=== PATIENT | female | born 1950 | race Caucasian/White ===

== ENCOUNTER 2020-02-02 08:48 | Outpatient (CLI) | payer MEDICARE, OTHER ==
--- NOTE | 2020-02-05 08:30 | DEXA Report ---
Reason: ASYMPTOMATIC MENOPAUSAL STATE Procedure Date: 02/02/2020 Accession Number: [id number] / [id number] Procedure: DEX - Dexa Spine and/or Hip CPT Code: Final Report FULL RESULT: EXAM: Dexa Spine and/or Hip, Dexa Forearm DATE: 02/02/2020 9:52 AM CLINICAL HISTORY: ASYMPTOMATIC MENOPAUSAL STATE TECHNIQUE: Dual energy x-ray absorptiometry (DXA) was performed on a [employer] System. Regions measured are the AP Spine, femoral neck, and if needed forearm. Forearm images are obtained due to exclusion of multiple vertebral bodies in the lumbar spine with apparent low reliability data generated of the lumbar spine DEXA due to anatomic considerations/hyperlordosis and scoliosis with degenerative changes. COMPARISON: None. In accordance with the International Society for Clinical Densitometry (ISCD) guidelines, data from previous exams may be reanalyzed using current recommendations and techniques. This is done to allow a more accurate basis for comparison with the current study. FINDINGS: The data for the lumbar spine is as follows: BMD (g/cm/cm) T-SCORE Z-SCORE REGION L1 1.217 0.7 2.1 L2 1.356 1.3 2.7 L3 1.384 1.5 2.9 L4 1.245 0.4 1.8 TOTAL (L1 and L2) 1.276 0.9 2.3 NOTE: L3 and L4 excluded due to outlier T score. The data for the hip is as follows: BMD (g/cm/cm) T-SCORE Z-SCORE REGION Neck 0.820 -1.6 -0.1 TOTAL 0.794 -1.7 -0.5 NOTE: The femoral neck or total proximal femur, whichever is lowest, is used for classification. The data for the left forearm is as follows: BMD (g/cm/cm) T-SCORE Z-SCORE REGION 1/3 0.697 -2 -0.3 NOTE: The 33% radius of the nondominant forearm is used for classification. IMPRESSION: THE WHO CLASSIFICATION BASED ON THE INTERNATIONAL REFERENCE STANDARD IS OSTEOPENIA. THE FRACTURE RISK IS INCREASED. RECOMMENDATION: Patients with diagnosis of osteoporosis or osteopenia should have regular bone mineral density assessment. For those eligible for Medicare, routine testing is allowed once every 2 years. Testing frequency can be increased for patients who have rapidly progressing disease or for those who are receiving medical therapy to restore bone mass. COMMENT: World Health Organization (WHO) definitions for osteoporosis and osteopenia: NORMAL BMD: T-score at -1.0 or higher, fracture risk is low OSTEOPENIA BMD: T-score between -1.0 and -2.5, fracture risk is increased. OSTEOPOROSIS BMD: T-score at -2.5 or lower, fracture risk is high. National Osteoporosis Foundation recommends: 1. Obtain adequate dietary calcium (at least 1200 mg per day) and vitamin D (400-800 international units per day). 2. Participate, as appropriate, in regular weightbearing and muscle-strengthening exercise. 3. Avoid tobacco use and reduce alcohol and caffeine intake. 4. For more detailed information see the website at www.NOF.org.
--- NOTE | 2020-02-05 08:30 | DEXA Report ---
Reason: Asymptomatic Menopausal State Procedure Date: 02/02/2020 Accession Number: [id number] / [id number] Procedure: DEX - Dexa Forearm CPT Code: Final Report FULL RESULT: EXAM: Dexa Spine and/or Hip, Dexa Forearm DATE: 02/02/2020 9:52 AM CLINICAL HISTORY: ASYMPTOMATIC MENOPAUSAL STATE TECHNIQUE: Dual energy x-ray absorptiometry (DXA) was performed on a [employer] System. Regions measured are the AP Spine, femoral neck, and if needed forearm. Forearm images are obtained due to exclusion of multiple vertebral bodies in the lumbar spine with apparent low reliability data generated of the lumbar spine DEXA due to anatomic considerations/hyperlordosis and scoliosis with degenerative changes. COMPARISON: None. In accordance with the International Society for Clinical Densitometry (ISCD) guidelines, data from previous exams may be reanalyzed using current recommendations and techniques. This is done to allow a more accurate basis for comparison with the current study. FINDINGS: The data for the lumbar spine is as follows: BMD (g/cm/cm) T-SCORE Z-SCORE REGION L1 1.217 0.7 2.1 L2 1.356 1.3 2.7 L3 1.384 1.5 2.9 L4 1.245 0.4 1.8 TOTAL (L1 and L2) 1.276 0.9 2.3 NOTE: L3 and L4 excluded due to outlier T score. The data for the hip is as follows: BMD (g/cm/cm) T-SCORE Z-SCORE REGION Neck 0.820 -1.6 -0.1 TOTAL 0.794 -1.7 -0.5 NOTE: The femoral neck or total proximal femur, whichever is lowest, is used for classification. The data for the left forearm is as follows: BMD (g/cm/cm) T-SCORE Z-SCORE REGION 1/3 0.697 -2 -0.3 NOTE: The 33% radius of the nondominant forearm is used for classification. IMPRESSION: THE WHO CLASSIFICATION BASED ON THE INTERNATIONAL REFERENCE STANDARD IS OSTEOPENIA. THE FRACTURE RISK IS INCREASED. RECOMMENDATION: Patients with diagnosis of osteoporosis or osteopenia should have regular bone mineral density assessment. For those eligible for Medicare, routine testing is allowed once every 2 years. Testing frequency can be increased for patients who have rapidly progressing disease or for those who are receiving medical therapy to restore bone mass. COMMENT: World Health Organization (WHO) definitions for osteoporosis and osteopenia: NORMAL BMD: T-score at -1.0 or higher, fracture risk is low OSTEOPENIA BMD: T-score between -1.0 and -2.5, fracture risk is increased. OSTEOPOROSIS BMD: T-score at -2.5 or lower, fracture risk is high. National Osteoporosis Foundation recommends: 1. Obtain adequate dietary calcium (at least 1200 mg per day) and vitamin D (400-800 international units per day). 2. Participate, as appropriate, in regular weightbearing and muscle-strengthening exercise. 3. Avoid tobacco use and reduce alcohol and caffeine intake. 4. For more detailed information see the website at www.NOF.org.
== END 2020-02-02 08:49 | disposition home or self-care (01) ==
LOC: DI 08:48
PROVIDERS: ATTEND Internal Medicine
DX: M85.88 Other specified disorders of bone density and structure, other site (principal)
CPT/HCPCS: 77080; 77081

== ENCOUNTER 2020-06-14 10:35 | Outpatient (CLI) | payer MEDICARE, OTHER ==
--- NOTE | 2020-06-17 09:18 | Mammography Report ---
BILATERAL DIGITAL SCREENING MAMMOGRAM 3D/2D: 06/14/2020 CLINICAL: Routine screening. Comparison is made to exams dated: 12/15/2017 mammogram, 12/10/2015 mammogram, and 06/08/2013 mammogram - [facility]. There are scattered fibroglandular elements in both breasts. No significant masses, calcifications, or other findings are seen in either breast. There has been no significant interval change. IMPRESSION: NEGATIVE There is no mammographic evidence of malignancy. A 1 year screening mammogram is recommended. This exam was interpreted at Station ID: [id number]. NOTE: For mammograms, a report in lay terms will be sent to the patient. Approximately 15% of breast malignancies will not be visualized mammographically. In the management of a palpable breast mass, a negative mammogram must not discourage biopsy of a clinically suspicious lesion. Electronically Signed By: Panda Sykes M.D. ddp/penrad:06/14/2020 15:52:09 ACR BI-RADS Category 1: Negative 3341F PARENCHYMAL PATTERN: (A) - The breast(s) demonstrate(s) scattered fibroglandular densities. BI-RADS CATEGORY: (1) - 1 RECOMMENDATION: (ANNUAL) - Recommend routine annual screening mammography. [id number] 1 year screening LATERALITY: (B)
== END 2020-06-14 10:36 | disposition home or self-care (01) ==
LOC: DI 10:35
DX: Z12.31 Encounter for screening mammogram for malignant neoplasm of breast (principal)
CPT/HCPCS: 77063; 77067

== ENCOUNTER 2021-08-13 14:43 | Emergency (ER) | payer MEDICARE, OTHER ==
[2021-08-13 16:29] LABS: BASOPHILS # (AUTO) 0.1 10^3/uL (0.0-0.1); EOSINOPHILS # (AUTO) 0.2 10^3/uL (0.0-0.7); HCT - HEMATOCRIT 47.8 % (37.0-47.0); HGB - HEMOGLOBIN 15.7 g/dL (12.0-16.0); LYMPHOCYTES # (AUTO) 1.6 10^3/uL (1.5-3.5); LYMPHOCYTES % (AUTO) 26.3 %; MEAN CORPUSCULAR HEMOGLOBIN 31.8 pg (27.0-31.0); MEAN CORPUSCULAR HGB CONC 32.8 g/dL (32.0-36.0); MEAN CORPUSCULAR VOLUME 96.8 fL (81.0-99.0); MEAN PLATELET VOLUME 11.2 fL (7.9-10.8); MONOCYTES # (AUTO) 0.6 10^3/uL (0.0-1.0); MONOCYTES % (AUTO) 9.3 %; NEUTROPHILS # (AUTO) 3.6 10^3/uL (1.5-6.6); NEUTROPHILS % (AUTO) 60.2 %; PLT - PLATELET COUNT 180 10^3/uL (130-450); RED BLOOD COUNT 4.94 10^6/uL (4.20-5.40); RED CELL DISTRIBUTION WIDTH 12.7 % (12.0-15.0)
[2021-08-13 16:43] LABS: ALBUMIN 4.4 g/dL (3.2-5.5); ALBUMIN/GLOBULIN RATIO 1.4 (1.0-2.2); BILIRUBIN,TOTAL 0.9 mg/dL (0.2-1.0); CALCIUM 9.7 mg/dL (8.5-10.3); CREATININE 0.9 mg/dL (0.4-1.0); POTASSIUM 3.7 mmol/L (3.5-5.0); PT - PROTHROMBIN TIME 10.9 secs (9.9-12.6); TOTAL PROTEIN 7.6 g/dL (6.7-8.2)
[2021-08-13 16:50] LABS: PARTIAL THROMBOPLASTIN TIME 31.9 secs (24.9-33.3)
[2021-08-13 18:22] VITALS: BP 151/95
--- NOTE | 2021-08-13 18:58 | ED Physician Documentation ---
History of Present Illness - Stated complaint Stated Complaint: BLOOD IN STOOL - Chief complaint Chief Complaint: General - History obtained from History obtained from: Patient - History of Present Illness Timing: Today Pain level max: 0 Pain level now: 0 - Additonal information Additional information: Patient is a 70-year-old female who presents to the emergency department with blood in her stool x1 today. She states bright red blood. History of hemorrhoids. Has had colonoscopies in the past with no issues found. No polyps or tumors. She is not having abdominal pain or fever. Patient denies any trauma. 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/Adenoidectomy - Present Medications Home Medications: Ambulatory Orders Medication Instructions Recorded Confirmed amLODIPine [Norvasc] 2.5 mg PO DAILY 08/01/15 08/01/15 atenoloL [Atenolol] 100 mg PO DAILY 08/01/15 08/01/15 - Allergies Allergies/Adverse Reactions: Allergies Allergy/AdvReac Type Severity Reaction Status Date / Time ampicillin Allergy Unknown Verified 08/01/15 03:56 esomeprazole magnesium * Allergy Unknown Verified 08/01/15 03:57 [From Nexium] hydrochlorothiazide Allergy Unknown Verified 08/01/15 03:57 lisinopril Allergy Unknown Verified 08/01/15 03:57 ranitidine Allergy Unknown Verified 08/01/15 03:57 Sulfa (Sulfonamide Allergy Unknown Verified 08/01/15 03:56 Antibiotics) - Social History Does the pt smoke?: No Smoking Status: Never smoker Does the pt drink ETOH?: Yes Does the pt have substance abuse?: No - Immunizations Immunizations are current?: Yes - POLST Patient has POLST: No PD ED PE NORMAL - Vitals Vital signs reviewed: Yes - General General: Alert and oriented X 3, No acute distress - HEENT HEENT: Moist mucous membranes - Neck Neck: Supple, no meningeal sign - Cardiac Cardiac: RRR - Respiratory Respiratory: No respiratory distress, Clear bilaterally - Abdomen Abdomen: Soft, Non tender, Non distended - Rectal Rectal: Other (Small external hemorrhoids, no bleeding. Small amount of blood in the rectal vault.) - Derm Derm: Warm and dry - Extremities Extremities: No edema - Neuro Neuro: Alert and oriented X 3 - Psych Psych: Normal mood, Normal affect Results - Vitals Vitals: Oxygen O2 Source Room air - Labs Labs: Laboratory Tests 08/13/21 08/13/21 08/13/21 16:21 16:21 16:21 WBC 6.0 RBC 4.94 Hgb 15.7 Hct 47.8 H MCV 96.8 MCH 31.8 H MCHC 32.8 RDW 12.7 Plt Count 180 MPV 11.2 H Neut # (Auto) 3.6 Lymph # (Auto) 1.6 [place] # (Auto) 0.6 Eos # (Auto) 0.2 Baso # (Auto) 0.1 Absolute Nucleated RBC 0.00 Nucleated RBC % 0.0 PT 10.9 INR 1.0 APTT 31.9 Sodium 139 Potassium 3.7 Chloride 101 Carbon Dioxide 28 Anion Gap 10.0 BUN 19 Creatinine 0.9 Estimated GFR (MDRD) 62 L Glucose 86 Calcium 9.7 Total Bilirubin 0.9 AST 26 ALT 24 Alkaline Phosphatase 116 Total Protein 7.6 Albumin 4.4 Globulin 3.2 Albumin/Globulin Ratio 1.4 Lipase 41 - Rads (name of study) Abdomen pelvis CT Radiology: Final report received, EMP read contemporaneously, See rad report PD MEDICAL DECISION MAKING - ED course Complexity details: reviewed results, re-evaluated patient, considered differential, d/w patient ED course: No acute findings on CT scan. Hemodynamically stable. Hemoglobin is normal. We will have her follow-up with her doctor for colonoscopy if her symptoms continue. Patient will return if she worsens. Abdomen is soft, nontender nondistended on serial exam. Patient counseled regarding signs and symptoms for which I believe and urgent re-evaluation would be necessary. Patient with good understanding of and agreement to plan and is comfortable going home at this time This document was made in part using voice recognition software. While efforts are made to proofread this document, sound alike and grammatical errors may occur. Departure - Departure Disposition: 01 Home, Self Care Clinical Impression: Hematochezia Condition: Good Instructions: ED Hematochezia Stable Follow-Up: APOLONIA SCHMITZ MD [Primary Care Provider] - Within 1 week Vignesh Li MD [Provider Admit Priv/Credential] - Isabel Georges MD [Provider Admit Priv/Credential] - Comments: The cause of your symptoms is unclear today. Your laboratory testing does not reveal any acute abnormalities. Your CT scan does not show any acute abnormalities either. If your symptoms continue, you should have a colonoscopy. Follow-up with your doctor to have this scheduled. Return if you worsen. Discharge Date/Time: 08/13/21 20:01
--- NOTE | 2021-08-13 19:04 | CT Report ---
PROCEDURE: Abdomen/Pelvis WO INDICATIONS: LLQ abd pain TECHNIQUE: Noncontrast 5 mm thick sections acquired from the diaphragms to the symphysis. 5 mm coronal and sagi ttal reformats were then performed. For radiation dose reduction, the following was used: automated exposure control, adjustment of mA and/or kV according to patient size. COMPARISON: None. FINDINGS: Image quality: Excellent. ABDOMEN: Lung bases: Lung bases are clear. Heart size is normal. Solid organs: Liver and spleen are normal in size. Gallbladder contains a peripherally calcified st one in its dependent portion measures 1.8 x 1.5 cm in size. No gallbladder wall thickening or pericho lecystic fluid. Pancreas is normal in contours. No adrenal nodules. Kidneys are normal in size, wi thout hydronephrosis. 4 mm nonobstructing stone in upper pole of right kidney is seen. 6 mm hyperdens e area involving posterior lateral cortex of mid pole left kidney is seen. Peritoneum and bowel: Unenhanced bowel loops demonstrate normal wall thickness and caliber. No free fluid or air. Appendix is visualized and is within normal limits. Mild sigmoid diverticulosis is se en, no CT evidence of acute diverticulitis. Mild fecal stasis in the colon is seen. Nodes and vessels: No retroperitoneal or mesenteric adenopathy by size criteria. Aorta and inferior vena cava are normal in caliber. Miscellaneous: No ventral hernias. PELVIS: Genitourinary: Bladder wall thickness is normal. Uterus and bilateral adnexa show no gross abnormal ity. Miscellaneous: No inguinal hernias or adenopathy. Bones: No suspicious bony lesions. No vertebral body compression fractures. Degenerative disc dise ase at L4-5 and L5-S1 levels are seen. Minimal anterolisthesis of L3 on L4 is seen. IMPRESSION: 1. No bowel obstruction or abnormal bowel wall thickening. Sigmoid diverticulosis without CT evidence of acute diverticulitis. Normal appendix. No free fluid of free air. 2. Cholelithiasis without CT evidence of acute cholecystitis. 3. Nonobstructing stone in right kidney. No hydronephrosis. 6 mm hypodense area involving mid pole of left kidney and is too small to characterize, likely represent benign process such as hyperdense cys t or hemorrhagic cyst. Reviewed by: Aries Linda MD on 08/13/2021 7:03 PM PDT Approved by: Aries Linda MD on 08/13/2021 7:03 PM PDT Station ID: [id number]
== END 2021-08-13 20:01 | disposition home or self-care (01) ==
LOC: ED 14:43
DX: K92.1 Melena (principal)
CPT/HCPCS: 36415; 80053; 83690; 85025; 85610; 85730; 99283; 99284

== ENCOUNTER 2022-02-14 02:31 | Outpatient (CLI) | payer MEDICARE, OTHER | END 2022-02-14 02:32 | disposition critical access hospital (66) | LOC: EMS 02:31 | DX: R55 Syncope and collapse (principal); R11.10 Vomiting, unspecified; R19.7 Diarrhea, unspecified | CPT/HCPCS: A0425; A0429 ==

== ENCOUNTER 2022-02-14 03:04 | Emergency (ER) | payer MEDICARE, OTHER ==
--- OUTSIDE RECORDS SUMMARY | 2022-02-14 03:28 | EXTERNAL MEDICAL SUMMARY RPT | Continuity of Care Document ---
:1950 Author Organization [facility] Address [address] [place] [address] Phone Allergies No information. Encounters No information. Medications No information. Problems date description facility [id number] Unspecified intestinal obstruction, [facility] [employer] unspecified as to partial versus complete obstruction Results No information.
[2022-02-14 03:42] LABS: ALBUMIN 3.9 g/dL (3.2-5.5); ALBUMIN/GLOBULIN RATIO 1.3 (1.0-2.2); BILIRUBIN,TOTAL 1.2 mg/dL (0.2-1.0); CALCIUM 9.2 mg/dL (8.5-10.3); CREATININE 0.8 mg/dL (0.4-1.0); POTASSIUM 3.6 mmol/L (3.5-5.0)
[2022-02-14 03:51] LABS: EOSINOPHILS % (AUTO) 0.5 %; HCT - HEMATOCRIT 40.3 % (37.0-47.0); HGB - HEMOGLOBIN 13.7 g/dL (12.0-16.0); LYMPHOCYTES # (AUTO) 0.5 10^3/uL (1.5-3.5); LYMPHOCYTES % (AUTO) 8.5 %; MEAN CORPUSCULAR HEMOGLOBIN 32.9 pg (27.0-31.0); MEAN CORPUSCULAR VOLUME 96.6 fL (81.0-99.0); MEAN PLATELET VOLUME 11.6 fL (7.9-10.8); MONOCYTES # (AUTO) 0.2 10^3/uL (0.0-1.0); MONOCYTES % (AUTO) 2.6 %; NEUTROPHILS # (AUTO) 5.1 10^3/uL (1.5-6.6); NEUTROPHILS % (AUTO) 88.2 %; PLT - PLATELET COUNT 117 10^3/uL (130-450); RED BLOOD COUNT 4.17 10^6/uL (4.20-5.40); RED CELL DISTRIBUTION WIDTH 13.2 % (12.0-15.0); WHITE BLOOD COUNT 5.8 x10^3/uL (4.8-10.8)
[2022-02-14] MEDS ORDERED: SODIUM CHLORIDE 0.9% 1,000 ML IV STA (04:32)
[2022-02-14] MEDS ORDERED: ONDANSETRON 4 MG/2 ML VIAL IVP STA (04:52)
--- NOTE | 2022-02-14 05:21 | ED Physician Documentation ---
PD HPI SYNCOPE - Stated complaint Stated Complaint: SYNCOPE - Chief complaint Chief Complaint: Neuro - History obtained from History obtained from: Patient - History of Present Illness Witnessed: Witnessed Timing - onset: Enter time (00:10), Today Duration: Seconds Preceding symptoms: Nausea / vomiting, Light headed, Generalized weakness Contributing factors: Other (chemotherapy (see narrative below)) Injury occurred: None Pain level max: 0 Pain level now: 0 Recently seen: Not recently seen - Additional information Additional information: patient had partial colectomy 5 weeks ago for colon CA. she had her first round of chemotherapy 5 days ago. Yesterday she developed nausea, vomiting, and diarrhea. At approximately midnight tonight, she had sudden nausea, vomiting, and diarrhea of such sudden onset that she had not made it to the bathroom yet. She took a shower to clean up and rapidly had sensation she was again going to have vomiting and diarrhea and so she got out of the shower and sat on the toilet. She then rapidly developed lightheadedness, generalized weakness, and sensation she was going to pass out and so she called for her spouse who came to help her. She says she then lost consciousness for approximately 30-60 seconds, but says her had helped her to the floor and thus there was no fall and no injury. She says she feels much better at the time of this HPI, asymptomatic at rest lying on stretcher Review of Systems Constitutional: reports: Reviewed and negative Cardiac: reports: Reviewed and negative Respiratory: reports: Reviewed and negative GI: reports: Nausea, Vomiting, Diarrhea. denies: Abdominal Pain : denies: Incontinent Skin: reports: Reviewed and negative Musculoskeletal: reports: Reviewed and negative Neurologic: reports: Generalized weakness (resolved after syncopal episode), Syncope. 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/Adenoidectomy - Present Medications Home Medications: Ambulatory Orders Medication Instructions Recorded Confirmed amLODIPine [Norvasc] 2.5 mg PO DAILY 08/01/15 02/14/22 atenoloL [Atenolol] 100 mg PO DAILY 08/01/15 02/14/22 Levothyroxine Sodium [Synthroid] 1 tab PO DAILY 02/14/22 02/14/22 - Allergies Allergies/Adverse Reactions: Allergies Allergy/AdvReac Type Severity Reaction Status Date / Time ampicillin Allergy Unknown Verified 02/14/22 03:24 esomeprazole magnesium * Allergy Unknown Verified 02/14/22 03:24 [From Nexium] hydrochlorothiazide Allergy Unknown Verified 02/14/22 03:24 lisinopril Allergy Unknown Verified 02/14/22 03:24 ranitidine Allergy Unknown Verified 02/14/22 03:24 Sulfa (Sulfonamide Allergy Unknown Verified 02/14/22 03:24 Antibiotics) - Social History Does the pt smoke?: No Smoking Status: Never smoker Does the pt drink ETOH?: Yes Does the pt have substance abuse?: No - Immunizations Immunizations are current?: Yes - POLST Patient has POLST: No PD ED PE NORMAL - Vitals Vital signs reviewed: Yes - General General: Alert and oriented X 3, No acute distress, Well developed/nourished - HEENT HEENT: Atraumatic, PERRL, EOMI, Other (tacky/pasty mucous membranes) - Neck Neck: No bony TTP - Cardiac Cardiac: RRR, No murmur - Respiratory Respiratory: No respiratory distress, Clear bilaterally - Abdomen Abdomen: Normal bowel sounds, Soft, Non tender, Non distended - Back Back: No CVA TTP - Derm Derm: Normal color, Warm and dry - Extremities Extremities: No edema - Neuro Neuro: Alert and oriented X 3, 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, No motor deficit, No sensory deficit, Normal speech Eye Opening: Spontaneous Motor: Obeys Commands Verbal: Oriented GCS Score: 15 Results - Vitals Vitals: Oxygen O2 Source Room air - EKG (time done) No standard instances Rate: Rate (enter#) (86) Rhythm: NSR [place]: Normal Intervals: Normal NE QRS: Normal Ischemia: Normal ST segments - Labs Labs: Laboratory Tests 02/14/22 02/14/22 02/14/22 03:15 03:15 03:44 WBC 5.8 RBC 4.17 L Hgb 13.7 Hct 40.3 MCV 96.6 MCH 32.9 H MCHC 34.0 RDW 13.2 Plt Count 117 L MPV 11.6 H Neut # (Auto) 5.1 Lymph # (Auto) 0.5 L [place] # (Auto) 0.2 Eos # (Auto) 0.0 Baso # (Auto) 0.0 Absolute Nucleated RBC 0.00 Nucleated RBC % 0.0 Sodium 135 Potassium 3.6 Chloride 98 L Carbon Dioxide 23 Anion Gap 14.0 H BUN 23 H Creatinine 0.8 Estimated GFR (MDRD) 71 L Glucose 146 H Calcium 9.2 Total Bilirubin 1.2 H AST 22 ALT 22 Alkaline Phosphatase 96 Troponin I High Sens 8.1 Total Protein 7.0 Albumin 3.9 Globulin 3.1 Albumin/Globulin Ratio 1.3 Lipase 49 PD MEDICAL DECISION MAKING - ED course Complexity details: reviewed results, re-evaluated patient, considered differential, d/w patient ED course: developed mild nausea early in stay and given zofran and 1 liter NS. Her blood pressures were low end of normal early in her stay (90s SBP), but with fluids the blood pressures improved to 100s-110s SBP. Prior to discharge, she was able to ambulate up and down the ED hallway without any symptoms. Unremarkable EKG and normal hs-Tni. Suspect syncope was due to dehydration (n/v/d starting yesterday), and possible vasovagal component as she had just gotten out of shower and then was again having cramping abdominal discomfort with diarrhea. Her bun/cr ratio would support dehydration, as well. Results reviewed w/ patient, return precautions discussed, and instructed to follow up with primary care provider for reevaluation Departure - Departure Disposition: 01 Home, Self Care Clinical Impression: Syncope Qualifiers: Syncope type: unspecified Qualified Code(s): R55 - Syncope and collapse Condition: Good Instructions: ED Fainting Unkn Cause Follow-Up: APOLONIA SCHMITZ MD [Primary Care Provider] - Comments: The results of the tests performed tonight (EKG, blood tests) are reassuring. The kidney tests were abnormal in a pattern that suggests dehydration (and not a problem with the kidney function). The most likely explanation for the passing out is dehydration due to the nausea, vomiting, and diarrhea, combined with decreased appetite (and resulting decreased intake you described) that resulted in a low blood pressure. The IV fluids and antinausea medication given in the emergency department appear to have helped. Return if your symptoms worsen, and follow up with your doctor for reevaluation this coming week as scheduled Discharge Date/Time: 02/14/22 06:50
[2022-02-14 06:32] VITALS: BP 116/79
== END 2022-02-14 06:50 | disposition home or self-care (01) ==
LOC: EDUNIT# → ED 03:04
DX: R55 Syncope and collapse (principal); R19.7 Diarrhea, unspecified; C18.9 Malignant neoplasm of colon, unspecified
CPT/HCPCS: 36415; 80053; 83690; 84484; 85025; 93005; 96361; 96374; 99283

== ENCOUNTER 2024-07-31 08:18 | Outpatient (CLI) | payer MEDICARE, OTHER | END 2024-07-31 23:59 | disposition short-term general hospital (02) | LOC: EMS 08:18 | DX: R55 Syncope and collapse (principal); R11.2 Nausea with vomiting, unspecified | CPT/HCPCS: A0425; A0429 ==